=== PATIENT | male | born 1995 | race Caucasian/White ===

== ENCOUNTER 2016-12-05 03:16 | Emergency (ER) | payer MEDICAID, OTHER ==
[~2016-12-05] VITALS: Ht 185.4 cm; Wt 90.7 kg
[~2016-12-05 03:16] MED LIST: AZIT1PAC8; C-PHEN; CONCERTA; GUAN1TAB14
--- OUTSIDE RECORDS SUMMARY | 2016-12-05 03:24 | XMS REPORT | Continuity of Care Document ---
Author Author [facility] Organization [facility] Address Unknown Phone Unavailable Care Team Providers Care Copy Room Technician Name Role Phone Self, Referral PCP Unavailable Source Comments Some departments are not documenting in the electronic medical record. If you do not see the information that you expected, contact Release of Information in the Health Information Management department at [phone] for further assistance in locating additional records.[facility] Active Allergies and Adverse Reactions No Known Allergies Current Medications Prescription Sig. Disp. Refills Start End Date Status Date azithromycin (ZITHROMAX) Take 250 mg by mouth Active 250 mg tablet Daily. Z-SARTHAK - DIRECTED Guanfacine (INTUNIV) 1 mg Take by mouth Daily. Active Tb24 methylphenidate SR Take 2 Tabs by mouth 60 0 10/26/20 Active (CONCERTA) 36 mg tablet Every Morning. 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
[2016-12-05] MEDS ORDERED: HYDR-87 PO (03:49)
--- NOTE | 2016-12-05 03:49 | ED Upper Extremity ---
General Chief Complaint: Upper Extremity Stated Complaint: HAND PAIN POSS FX KNUCKLE Nursing Triage Note: Pt presents to ED with c/o right 5th digit pain/swelling after he punched a metal door after getting mad at video game. Nursing Sepsis Screen: No Definite Risk Source: patient History of Present Illness Time seen by provider: 03:28 Initial Comments PT STATES HE GOT MAD AT A VIDEO GAME AND PUNCHED A METAL DOOR WITH HIS RIGHT HAND OCCURRED JUST PRIOR TO ARRIVAL NO OTHER INJURIES NO PARESTHESIAS OR MOTOR DEFICITS PT IS RIGHT HANDED NO PRIOR INJURY TO THIS HAND Allergies and Home Medications Allergies Coded Allergies: No Known Drug Allergies (Verified Allergy, Unknown, 10/22/09) Home Medications Hydrocodone/Ibuprofen 1 Each Tablet #20 1 EACH PO Q4H Prescribed by: DANTE WHITE on 12/05/16 0349 Constitutional: no symptoms reported Musculoskeletal: see HPI Skin: no symptoms reported Psychiatric/Neurological: No Symptoms Reported Past [id number]-[id number]-[id number] Hx Patient Social History Alcohol Use: Denies Use Recreational Drug Use: No Smoking Status: Never a Smoker Recent Foreign Travel: No Contact w/Someone Who Travel: No Recent Infectious Disease Expo: No Recent Hopitalizations: No Physical Abuse Screen: No Sexual Abuse: No Immunizations Up To Date Tetanus Booster (TDap): Less than 5yrs Seasonal Allergies Seasonal Allergies: No Surgeries HX Surgeries: Yes (tonsilectomy) Surgeries: Orthopedic, Tonsillectomy Respiratory Hx Respiratory Disorders: No Cardiovascular Hx Cardiac Disorders: No Neurological Hx Neurological Disorders: No Reproductive System Hx Reproductive Disorders: No Genitourinary Hx Genitourinary Disorders: No Gastrointestinal Hx Gastrointestinal Disorders: No Musculoskeletal Hx Musculoskeletal Disorders: No Endocrine Hx Endocrine Disorders: No HEENT HX ENT Disorders: No Cancer Hx Cancer: No Psychosocial Hx Psychiatric Problems: Yes Blood Transfusions Hx Blood Disorders: Yes (hemochromotosis, carries gene for) Physical Exam Vital Signs Vital Sign - Last 12Hours 12/05/16 03:20 Temp 98.4 Pulse 67 Resp 18 B/P 147/90 Pulse Ox 98 O2 Delivery Room Air Capillary Refill : Less Than 3 Seconds General Appearance: WD/WN no apparent distress Wrist: Yes normal inspection, Yes non-tender, Yes no evidence of injury, Yes normal ROM Hand: Right, bone tenderness, limited ROM, soft tissue tenderness, swelling Neurologic/Tendon: normal sensation normal motor functions normal tendon functions Neurologic/Psychiatric: hris coordinator II-XII nml as tested no motor/sensory deficits alert normal mood/affect oriented x 3 Skin: normal color warm/dry Splinting and Joint Reduction : Hand-Made Type: orthoglass Splint Application: Short Arm Progress/Results/Core Measures Results/Orders My Orders Orders-DANTE WHITE DO Hand, Right, 3 Views (12/05/16 03:28) Splint Application Short Arm (12/05/16 03:41) Hydrocodone/Apap 5/325 Tablet (Lortab 5 (12/05/16 04:30) Hydrocodone/Apap 5/325 Tablet (Lortab 5 (12/05/16 04:13) Medications Given in ED Current Medications Medications Dose Ordered Sig/Ankit Route Start Time Stop Time Status Last Admin Dose Admin Acetaminophen/ Hydrocodone Bitart 2 tab ONCE ONCE PO 12/05/16 04:30 12/05/16 04:31 12/05/16 04:22 2 TAB Vital Signs/I&O Vital Sign - Last 12Hours 12/05/16 03:20 Temp 98.4 Pulse 67 Resp 18 B/P 147/90 Pulse Ox 98 O2 Delivery Room Air Blood Pressure Mean: 109 Diagnostic Imaging Comments XRAYS RIGHT HAND --FX 5TH METACARPAL, PENDING RADIOLOGIST REVIEW Reviewed: Reviewed by Me Departure Impression Impression: Primary Impression: CLOSED FX RIGHT 5TH METACARPAL Disposition: 01 HOME, SELF-CARE Condition: Stable Departure-Patient Inst. Referrals: NO,LOCAL PHYSICIAN (PCP) Primary Care Physician MATTHIAS MIRANDA MD ORTHO 4 STATES Patient Instructions: Boxer's Fracture (DC), SPLINT CARE Add. Discharge Instructions: WEAR SPLINT AT ALL TIMES ICE TO AREA AT 10 MINUTE INTERVALS ELEVATE HAND MUCH POSSIBLE FOLLOW UP WITH ORTHO 4 STATES OR SURGEON RESIDENTIAL PEST CONTROL TECHNICIAN THIS WEEK FOR FURTHER CARE All discharge instructions reviewed with patient and/or family. Voiced understanding. Scripts Hydrocodone/Ibuprofen (Hydrocodone-Ibuprofen 7.5-200)1 Each Tablet1 Each PO Q4H Pain #20 TAB Prov:DANTE WHITE DO 12/05/16 Images Extremities-Upper 1 - Moderate, Swelling, Tenderness DANTE WHITE DO Dec 05, 2016 03:49
[2016-12-05] MEDS ORDERED: HYDROcodone/APAP 5 MG/325 MG (LORTAB) TAB ONE (04:13)
[2016-12-05 04:20] VITALS: BP 147/90
[2016-12-05] MEDS ORDERED: HYDROcodone/APAP 5 MG/325 MG (LORTAB) TAB PO ONE (04:30)
--- NOTE | 2016-12-05 06:53 | Diagnostic Imaging Report ---
INDICATION: Right hand injury Three views of the right hand show a nondisplaced with slightly angulated fracture of the head of the fifth metacarpal. IMPRESSION: Nondisplaced boxer's fracture head of the fifth metacarpal with slight volar angulation. Dictated by: Dictated on workstation # [id number]
== END 2016-12-05 04:25 | disposition home or self-care (01) ==
LOC: EDUNIT# 03:16 → ER 03:20
DX: S62.356A Nondisplaced fracture of shaft of fifth metacarpal bone, right hand, initial encounter for closed fracture (principal); W22.09XA Striking against other stationary object, initial encounter; Y99.8 Other external cause status
CPT/HCPCS: 29125; 73130